=== PATIENT | male | born 1955 | race Caucasian/White ===

== ENCOUNTER 2023-02-06 18:14 | Emergency (ER) | payer MEDICARE, SELFPAY ==
[2023-02-06 18:28] VITALS: BP 165/77; PULSE 51; RESP 18; TEMP 36.5; O2SAT 98; BMI 26.4
[2023-02-06 19:15] LABS: Basophils % 0.5 %; Eosinophils % 0.2 %; Hematocrit 37.5 % (42.0-52.0); Hemoglobin 12.3 g/dL (11.7-16.6); Lymphocytes % 16.2 %; Mean Corpuscular HGB Conc 32.8 g/dL (30.0-36.0); Mean Corpuscular Hemoglobin 26.5 pg (28.0-34.0); Mean Corpuscular Volume 80.6 fl (80-94); Mean Platelet Volume 10.5 fL (7.4-10.4); Monocytes # 0.3 10^3/uL (0.2-0.9); Monocytes % 5.1 %; Neutrophils # 4.88 10^3/uL (1.8-7.7); Neutrophils % 77.4 %; Nucleated Red Blood Cells % 0 %; Platelet Count 261 10^3/cmm (130-400); Red Blood Count 4.65 10^6/uL (4.1-5.3); Red Cell Distribution Width 14.6 % (12.1-15.1); White Blood Count 6.3 10^3/uL (4.0-10.0)
[2023-02-06 20:12] LABS: Alanine Aminotransferase 11 U/L (0-41); Albumin Level 4.4 g/dL (3.5-5.2); Alkaline Phosphatase 118 U/L (40-130); Anion Gap 16.8 (5-19); Aspartate Amino Transferase 17 U/L (0-40); Blood Urea Nitrogen 11 mg/dL (8-23); Calcium 9.3 mg/dL (8.5-10.5); Carbon Dioxide 24 mmol/L (22-29); Chloride 86 mmol/L (98-107); Globulin 3.3 g/dL (1.3-4.6); Glomerular Filtration Rate 112.1 mL/min (90-130); Glucose 128 mg/dL (65-115); Lipase 75 U/L (13-60); Osmolality Calculated 257 mOsm/kg (285-295); Potassium 3.8 mmol/L (3.5-5.1); Sodium 123 mmol/L (136-145); Total Bilirubin 1.1 mg/dL (0.15-1.2); Total Protein 7.7 g/dL (6.6-8.7)
[2023-02-06 20:32] LABS: Troponin(5th) Baseline 6 ng/L (0-15)
--- NOTE | 2023-02-06 20:38 | ECG_ITS ---
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 Measurements Intervals [place] Rate: 56 P: 31 PA: 186 QRS: 10 QRSD: 91 T: 1 QT: 431 QTc: 418 Interpretive Statements SINUS BRADYCARDIA MINIMAL VOLTAGE CRITERIA FOR LVH, CONSIDER NORMAL VARIANT [MEETS CRITERIA IN ONE OF: R(aVL), S(V1), R(V5), R(V5/V6)+S(V1)] MINIMAL ST DEPRESSION [0.025+ mV ST DEPRESSION] Compared to ECG 11/24/2015 05:48:56 ST (T wave) deviation now present Sinus tachycardia no longer present First degree AV block no longer present Electronically Signed On 02-07-2023 6:59:16 CDT by Kaya Duarte M.D. [id number]
--- NOTE | 2023-02-06 21:18 | ED_ITS ---
HPI - Nausea/Vomiting/Diarrhea General: Chief complaint: Nausea/Vomiting/Diarrhea Stated complaint: Blood Pressure High\Vomiting Time Seen by Provider: 02/06/23 20:20 Source: patient Mode of arrival: ambulatory History of Present Illness: 67-year-old male presents emergency room complaining of nausea vomiting began around noon today he also noticed blood pressure was elevated at that time presented difficulty with vision speech swallowing gait or balance. No focal neurologic deficits no chest pain. No nausea and vomiting has improved somewhat. His blood pressure is mildly elevated when he arrives here he had contacted his primary care doctor advised him to increase his lisinopril to 10 mg twice daily which he did. No recent head trauma. MD elicited complaint: nausea and vomiting Onset (ago): hour(s) Description of vomiting: food contents and watery Associated nausea: Yes Associated abdominal pain: Yes Location of pain: None Severity: moderate Exacerbating factors: none Relieving factors: none Associated symtoms: Reports nausea; Denies altered mental status, anxiety, bloating, change in vision, chest pain, cough, diaphoresis, decreased urine output, dizziness, dysuria, epistaxis, fatigue, fecal incontinence, fevers/chills, headache(s), anorexia, malaise, myalgias, numbness, palpitations, rash, short of breath, syncope, tenesmus, tinnitus or weakness Review of Systems Const: Denies: fever(s), chills, fatigue, malaise or diaphoresis Eyes: Denies: change in vision ENMT: Denies: tinnitus or epistaxis Card: Denies: chest pain, palpitations or syncope Resp: Denies: dyspnea, productive cough or non-productive cough GI: Reports: nausea and vomiting; Denies: abdominal pain, bloating or fecal incontinence : Denies: dysuria Neuro: Denies: headache(s) or dizziness Psych: Denies: anxiety Physical Exam Const: EXAM LIMITATIONS: no altered mental status Course Vital Signs: Vital signs: Vital Signs Temperature 97.7 F 02/06/23 18:28 Pulse Rate 51 L 02/06/23 18:28 Respiratory Rate 18 02/06/23 18:28 Blood Pressure 165/77 02/06/23 18:28 Pulse Oximetry 98 02/06/23 18:28 Oxygen Delivery Me thod Room Air 02/06/23 18:28 MDM - Nausea/Vomiting/Diarrhea Medical Decision Making Patient has mild hyponatremia his symptoms are improved after IV fluids blood pressure is still mildly elevated will add amlodipine 5 mg daily continue his lisinopril follow-up with his primary care doctor additionally was given antiemetics to use as needed return if has further problems. Medical Records I reviewed the patient's medical records. Lab Data I reviewed the patient's lab results. 02/06/23 19:03 02/06/23 19:03 Laboratory Results WBC 6.3 10^3/uL (4.0-10.0) 02/06/23 19: RBC 4.65 10^6/uL (4.1-5.3) 02/06/23 19: Hgb 12.3 g/dL (11.7-16.6) 02/06/23 19: Hct 37.5 % (42.0-52.0) L 02/06/23 19: MCV 80.6 fl (80-94) 02/06/23 19: MCH 26.5 pg (28.0-34.0) L 02/06/23 19: MCHC 32.8 g/dL (30.0-36.0) 02/06/23 19: RDW 14.6 % (12.1-15.1) 02/06/23 19:03 Plt Count 261 10^3/cmm (130-400) 02/06/23 19:03 MPV 10.5 fL (7.4-10.4) H 02/06/23 19: Neut % (Auto) 77.4 % 02/06/23 19: Lymph % (Auto) 16.2 % 02/06/23 19:03 [place] % (Auto) 5.1 % 02/06/23 19:03 Eos % (Auto) 0.2 % 02/06/23 19: Baso % (Auto) 0.5 % 02/06/23 19:03 Neut # (Auto) 4.88 10^3/uL (1.8-7.7) 02/06/23 19:03 Lymph # (Auto) 1.0 10^3/uL (0.8-4.8) 02/06/23 19: [place] # (Auto) 0.3 10^3/uL (0.2-0.9) 02/06/23 19:03 Eos # (Auto) 0.0 10^3/uL (0.0-0.8) 02/06/23 19:03 Baso # (Auto) 0.0 10^3/uL (0.0-0.1) 02/06/23 19:03 Nucleated RBC % (auto) 0 % 02/06/23 19:03 Nucleated RBCs # 0.0 /100WBC 02/06/23 19:03 Sodium 123 mmol/L (136-145) L 02/06/23 19:03 Potassium 3.8 mmol/L (3.5-5.1) 02/06/23 19:03 Chloride 86 mmol/L (98-107) L 02/06/23 19:03 Carbon Dioxide 24 mmol/L (22-29) 02/06/23 19:03 Anion Gap 16.8 (5-19) 02/06/23 19:03 BUN 11 mg/dL (8-23) 02/06/23 19:03 Creatinine 0.7 mg/dL (0.7-1.2) 02/06/23 19:03 GFR Calculation 112.1 mL/min (90-130) 02/06/23 19:03 Glucose 128 mg/dL (65-115) H 02/06/23 19:03 Calculated Osmolality 257 mOsm/kg (285-295) L 02/06/23 19:03 Calcium 9.3 mg/dL (8.5-10.5) 02/06/23 19:03 Total Bilirubin 1.1 mg/dL (0.15-1.2) 02/06/23 19:03 AST 17 U/L (0-40) 02/06/23 19:03 ALT 11 U/L (0-41) 02/06/23 19:03 Alkaline Phosphatase 118 U/L (40-130) 02/06/23 19:03 Troponin T Baseline 6 ng/L (0-15) 02/06/23 19:58 Troponin T 120 Minute 6.00 ng/L (0-15) 02/06/23 21:00 Delta Troponin T 0 ABS# (0-10) 02/06/23 21:00 Total Protein 7.7 g/dL (6.6-8.7) 02/06/23 19:03 Albumin 4.4 g/dL (3.5-5.2) 02/06/23 19:03 Globulin 3.3 g/dL (1.3-4.6) 02/06/23 19:03 Lipase 75 U/L (13-60) H 02/06/23 19:03 Discharge Plan Discharge Patient Disposition: Home Clinical Impression: HTN (hypertension) Condition: Stable Prescriptions: New amlodipine 5 mg tablet 5 mg PO DAILY Qty: 30 0RF promethazine 25 mg tablet 25 mg PO Q6H PRN (Reason: nausea and vomiting) Qty: 20 0RF Discharge Orders: Discharge ED (Routine); Ordered 02/06/23 Ordered By: Shaggy Hawley Referrals: Candido Rueda MD [Primary Care Provider] - Discharge Diet: Usual diet Discharge Activity: Increase activity as tolerated Patient Instructions: Opioid Safety, Pain Management Activity Restrictions/Additional Instructions: You were seen today for nausea and vomiting your laboratory tests showed a mildly decreased sodium but otherwise were unremarkable. Your symptoms improved with IV fluids blood pressure is improved would recommend you start amlodipine 5 mg daily continue lisinopril follow-up with your primary care doc next week in the office return if you have further problems. Coding Level of Care Code ED Air Pollution Compliance Inspector for Dimas Smith
[2023-02-06] MEDS: sodium chloride 0.9% 1,000 ML 999 ML IV (21:28)
[2023-02-06] MEDS: ondansetron 2 mg/ML SDV 2 mL 4 MG IVP (21:29)
[2023-02-06 22:00] VITALS: BP 139/80; O2SAT 94
[2023-02-06 22:09] LABS: Troponin 5 2HR Delta 0 ABS# (0-10)
[2023-02-06 22:30] VITALS: BP 113/87; PULSE 61; O2SAT 97
[2023-02-06 22:47] LABS: Add Urine Microscopic? NO; Charge for UA Resulting for Rev
[2023-02-06 22:56] LABS: Bilirubin Urine Neg (Negative); Blood Urine Neg (Negative); Glucose Urine UA Norm (Normal); Ketones Urine 2+ (Negative); Leukocyte Esterase Urine Negative (Negative); Nitrate Urine Negative (Negative); Protein Urine Neg (Negative); Urine Appearance Clear (CLEAR); Urine Color Yellow (Yellow); Urobilinogen Urine Norm (Negative); pH Urine 8 (5-7)
[2023-02-06 23:00] VITALS: BP 151/83; O2SAT 97
== END 2023-02-06 23:05 | disposition home or self-care (01) ==
PROVIDERS: Nurse Practitioner Family; Emergency Provider Family Medicine; PCP Family Medicine
DX: I10 Essential (primary) hypertension (principal)
CPT/HCPCS: 36415; 80053; 81003; 83690; 84484; 85025; 93005; 96374; 99284; J2405; J7030

== ENCOUNTER 2024-09-14 03:47 | Emergency (ER) | payer MEDICARE, SELFPAY ==
[2024-09-14 03:57] VITALS: BP 197/97; PULSE 65; RESP 18; TEMP 36.6; O2SAT 99; BMI 26.6
--- NOTE | 2024-09-14 04:04 | ECG_ITS ---
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
--- NOTE | 2024-09-14 04:04 | XRR_ITS ---
PROCEDURE INFORMATION: Exam: XR Chest Exam date and time: 09/14/2024 4:14 AM Age: 69 years old Clinical indication: Other: HTN; Additional info: Hypertension TECHNIQUE: Imaging protocol: Radiologic exam of the chest. Views: 1 view. COMPARISON: No relevant prior studies available. FINDINGS: Lungs: Unremarkable. No consolidation. Pleural spaces: Unremarkable. No pleural effusion. No pneumothorax. Heart/Mediastinum: Unremarkable. No cardiomegaly. Bones/joints: Unremarkable. XR/XR chest 1V portable [id number] IMPRESSION: No acute findings.
[2024-09-14 04:05] VITALS: BP 197/97; PULSE 61; RESP 18; TEMP 36.6; O2SAT 95
[2024-09-14 04:12] VITALS: BP 197/97
[2024-09-14] MEDS: cloNIDine 0.1 mg Tablet PO (04:12)
--- NOTE | 2024-09-14 04:19 | ED_ITS ---
HPI - General Adult 2 General: Chief complaint: General Medical Stated complaint: High BP Time Seen by Provider: 09/14/24 03:58 History of Present Illness: 69-year-old man with a history of hypert ension who presents emergency room with hypertension. He was seen in his primary care provider recently and they increased his lisinopril. He said he woke up this morning and he could tell his blood pressure was elevated. No chest pain. No headache. No altered mental status. No nausea or vomiting. No focal motor deficits. No fevers. No cough Related Data Previous Rx's ?Medication ?Instructions ?Recorded amlodipine 5 mg tablet 5 mg PO DAILY #30 tabs 02/06 promethazine 25 mg tablet 25 mg PO Q6H PRN nausea and 02/06/23 vomiting #20 tabs clonidine HCl 0.1 mg tablet 0.1 mg PO Q8H PRN hyperten sive 09/14/24 emergency #20 tabs Allergies Allergy/AdvReac Type Severity Reaction Status Date / Time No Known Allergies Allergy Verified 02/06/23 18:35 Review of Systems 2 Narrative: Constitutional symptoms: Negative except as documented in HPI. Skin symptoms: Negative except as documented in HPI. Eye symptoms: Negative except as documented in HPI. ENMT symptoms: Negative except as documented in HPI. Respiratory symptoms: Negative except as documented in HPI. Cardiovascular symptoms: Negative except as documented in HPI. Gastrointestinal symptoms: Negative except as documented in HPI. Genitourinary symptoms: Negative except as documented in HPI. Musculoskeletal symptoms: Negative except as documented in HPI. Neurologic symptoms: Negative except as documented in HPI. Psychiatric symptoms: Negative except as documented in HPI. Endocrine symptoms: Negative except as documented in HPI. Physical Exam 2 Narrative: EXAM NARRATIVE: General: Alert, no acute distress. Skin: Warm, dry. Head: Normocephalic, atraumatic. Neck: Supple, trachea midline. Eye: Extraocular movements are intact. Ears, nose, mouth and throat: mucosa moist. Cardiovascular: Regular, Normal peripheral perfusion. Respiratory: Lungs are clear to auscultation, respirations are non-labored, breath sounds are equal, Symmetrical chest wall expansion. Gastrointestinal: Soft, Nontender, Non distended Musculoskeletal: Normal ROM, no deformity. Neurological: Alert and oriented, No focal neurological deficit observed. Psychiatric: Cooperative, appropriate mood & affect. Course 2 Vital Signs: Vital signs: Vital Signs Temperature 97.8 F 09/14/24 04:05 Pulse Rate 54 L 09/14/24 04:56 Respiratory Rate 18 09/14/24 04:05 Blood Pressure 147/83 09/14/24 04:56 Pulse Oximetry 97 09/14/24 04:56 Oxygen Delivery Me thod Room Air 09/14/24 04:56 MDM - General Adult Medical Decision Making Medical decision making: Differential diagnosis including but not limited to and based on the above HPI, review of systems and physical exam: Patient presents with hypertension: Essential hypertension. Stroke. acute coronary syndrome. kidney failure. congestive heart failure. anxiety EKG: Time 4:04 AM. Rate 61. Normal sinus rhythm, No ST-T changes, no ectopy, normal NM & QRS intervals, This was reviewed and interpreted by myself the ER physician at 4:10 AM Chest x-ray: No acute process. No infiltrate. No pneumothorax. This was reviewed and interpreted by myself the emergency room physician. I also reviewed the radiology report. Orders placed to evaluate differential diagnosis based on the above differential, HPI and physical exam Lab Review: Laboratory results were reviewed and interpreted by myself the emergency room physician. Lab work is unremarkable. No leukocytosis. No anemia. No renal failure. proBNP is negative. I reviewed the patient's medical record. Reexamination: Patient's blood pressure improved significantly. On discharge she is in the 130s systolic. No increased work of breathing. No altered mental status. No headaches. No chest pain Assessment and plan: Accelerated hypertension ?Clonidine in the emergency room. Home with a prescription. Follow-up with his primary for further blood pressure management. - Discharged home - Discussed plan with patient. Answered any questions. - Evaluation and treatment of this problem were appropriate in the emergency setting. Lab Data 09/14/24 04:30 09/14/24 04:30 Radiology Impressions Chest X-Ray 09/14/24 04:04 IMPRESSION: No acute findings. Laboratory Results WBC 3.59 10^3/uL (3.29-11.43) 09/14/24 04:30 RBC 4.02 10^6/uL (3.85-5.65) 09/14/24 04:30 Hgb 11.60 g/dL (11.27-16.99) 09/14/24 04:30 Hct 35.7 % (37-53) L 09/14/24 04:30 MCV 88.8 fl (82-101) 09/14/24 04:30 MCH 28.9 pg (27-33) 09/14/24 04:30 MCHC 32.5 g/dL (30-55) 09/14/24 04:30 RDW 14.1 % (12.1-15.1) 09/14/24 04:30 Plt Count 200 10^3/cmm (157-399) 09/14/24 04:30 MPV 10.1 fL (7.4-10.4) 09/14/24 04:30 Neut % (Auto) 41.7 % 09/14/24 04:30 Lymph % (Auto) 44.3 % 09/14/24 04:30 [place] % (Auto) 10.6 % 09/14/24 04:30 Eos % (Auto) 1.7 % 09/14/24 04:30 Baso % (Auto) 1.4 % 09/14/24 04:30 Neut # (Auto) 1.50 10^3/uL (1.8-7.7) L 09/14/24 04:30 Lymph # (Auto) 1.6 10^3/uL (0.8-4.8) 09/14/24 04:30 [place] # (Auto) 0.4 10^3/uL (0.2-0.9) 09/14/24 04:30 Eos # (Auto) 0.1 10^3/uL (0.0-0.8) 09/14/24 04:30 Baso # (Auto) 0.1 10^3/uL (0.0-0.1) 09/14/24 04:30 Nucleated RBC % (auto) 0 % 09/14/24 04:30 Nucleated RBCs # 0.0 /100WBC 09/14/24 04:30 Sodium 139 mmol/L (136-145) 09/14/24 04:30 Potassium 4.1 mmol/L (3.5-5.1) 09/14/24 04:30 Chloride 104 mmol/L (98-107) 09/14/24 04:30 Carbon Dioxide 23 mmol/L (22-29) 09/14/24 04:30 Anion Gap 16.1 (5-19) 09/14/24 04:30 BUN 16 mg/dL (8-23) 09/14/24 04:30 Creatinine 0.9 mg/dL (0.7-1.2) 09/14/24 04:30 GFR Calculation 83.4 mL/min (90-130) L 09/14/24 04:30 Glucose 116 mg/dL (65-115) H 09/14/24 04:30 Calculated Osmolality 290 mOsm/kg (285-295) 09/14/24 04:30 Calcium 8.9 mg/dL (8.5-10.5) 09/14/24 04:30 Total Bilirubin 0.4 mg/dL (0.15-1.2) 09/14/24 04:30 AST 21 U/L (0-40) 09/14/24 04:30 ALT 13 U/L (0-41) 09/14/24 04:30 Alkaline Phosphatase 77 U/L (40-130) 09/14/24 04:30 Troponin T Baseline < 6 ng/L (0-15) 09/14/24 04:30 NT-Pro-B Natriuret Pep 119 pg/mL (0-125) 09/14/24 04:30 Total Protein 6.8 g/dL (6.6-8.7) 09/14/24 04:30 Albumin 4.1 g/dL (3.5-5.2) 09/14/24 04:30 Globulin 2.7 g/dL (1.3-4.6) 09/14/24 04:30 All radiology interpretation(s) finalized by discharge Discharge Plan Discharge Patient Disposition: Home Clinical Impression: Accelerated hypertension Condition: Stable Prescriptions: New clonidine HCl 0.1 mg tablet 0.1 mg PO Q8H PRN (Reason: hypertensive emergency) Qty: 20 0RF Rx Instructions: For Systolic >185 diastolic >100 No Action amlodipine 5 mg tablet 5 mg PO DAILY Qty: 30 0RF promethazine 25 mg tablet 25 mg PO Q6H PRN (Reason: nausea and vomiting) Qty: 20 0RF Discharge Orders: Discharge ED (Routine); Ordered 09/14/24 Ordered By: Vianney Bell Referrals: Candido Rueda MD [Primary Care Provider] - Discharge Diet: Usual diet Discharge Activity: Increase activity as tolerated Patient Instructions: Hypertension (ED), Opioid Safety, Pain Management Activity Restrictions/Additional Instructions: [facility]. Please realize this is an emergency room and that we are providing you with a medical screening exam and this may not be complete and all inclusive of all the testing and or work up that you may need to determine your ailment or severity of your illness. You have been screened and evaluated and felt safe for discharge. Health conditions do change or evolve sometimes and as such it is important that you follow up with your Primary Doctor to be re checked, 3-5 days is a general good time frame for follow up. You are always welcome to return to the ED for re assessment if your symptoms are worsening or you have new concerns Print Language: Romanian Coding Level of Care Code ED Manager Research And Development for Dimas Smith
[2024-09-14 04:38] LABS: Basophils # 0.1 10^3/uL (0.0-0.1); Basophils % 1.4 %; Eosinophils # 0.1 10^3/uL (0.0-0.8); Eosinophils % 1.7 %; Hematocrit 35.7 % (37-53); Lymphocytes # 1.6 10^3/uL (0.8-4.8); Lymphocytes % 44.3 %; Mean Corpuscular HGB Conc 32.5 g/dL (30-55); Mean Corpuscular Hemoglobin 28.9 pg (27-33); Mean Corpuscular Volume 88.8 fl (82-101); Mean Platelet Volume 10.1 fL (7.4-10.4); Monocytes # 0.4 10^3/uL (0.2-0.9); Monocytes % 10.6 %; Neutrophils % 41.7 %; Nucleated Red Blood Cells % 0 %; Platelet Count 200 10^3/cmm (157-399); Red Blood Count 4.02 10^6/uL (3.85-5.65); Red Cell Distribution Width 14.1 % (12.1-15.1); White Blood Count 3.59 10^3/uL (3.29-11.43)
[2024-09-14 04:56] VITALS: BP 147/83; PULSE 54; O2SAT 97
[2024-09-14 04:59] LABS: Troponin(5th) Baseline < 6 ng/L (0-15)
[2024-09-14 05:11] LABS: Alanine Aminotransferase 13 U/L (0-41); Albumin Level 4.1 g/dL (3.5-5.2); Alkaline Phosphatase 77 U/L (40-130); Anion Gap 16.1 (5-19); Aspartate Amino Transferase 21 U/L (0-40); Blood Urea Nitrogen 16 mg/dL (8-23); Calcium 8.9 mg/dL (8.5-10.5); Carbon Dioxide 23 mmol/L (22-29); Chloride 104 mmol/L (98-107); Creatinine Clr Calc Pharmacy 81.1036; Globulin 2.7 g/dL (1.3-4.6); Glomerular Filtration Rate 83.4 mL/min (90-130); Glucose 116 mg/dL (65-115); NT Pro B Type Natriuretic Pept 119 pg/mL (0-125); Osmolality Calculated 290 mOsm/kg (285-295); Potassium 4.1 mmol/L (3.5-5.1); Sodium 139 mmol/L (136-145); Total Bilirubin 0.4 mg/dL (0.15-1.2); Total Protein 6.8 g/dL (6.6-8.7)
[2024-09-14 05:26] VITALS: BP 133/69; PULSE 55; RESP 16; O2SAT 96
== END 2024-09-14 05:27 | disposition home or self-care (01) ==
PROVIDERS: Emergency Provider Emergency Medicine; PCP Family Medicine
DX: I10 Essential (primary) hypertension (principal)
CPT/HCPCS: 36415; 71045; 80053; 83880; 84484; 85025; 93005; 99285